=== PATIENT | male | born 2000 ===

== ENCOUNTER 2019-05-12 06:19 | Day surgery (SDC) | payer OTHER ==
[~2019-05-12 06:19] MED LIST: Acetaminophen TAB* 325 MG ONE; Acetaminophen TAB* 325 MG PO ONE; Buffered Lidocaine 1% SYRIN* 1 ML/SYRINGE INTRADERM ONE; Famotidine IV* 10 MG/ML 2 ML (20 mg) IV ONE; Famotidine IV* 10 MG/ML 2 ML (20 mg) ONE; Gabapentin CAP(*) 300 MG PO ONE; Lactated Ringers 1000 ML Bag* 1,000 ML IV SCH
[2019-05-12] MEDS ORDERED: Gabapentin CAP(*) 300 MG ONE (06:24)
[2019-05-12] MEDS ORDERED: Buffered Lidocaine 1% SYRIN* 1 ML/SYRINGE INTRADERM ONE (06:46)
[2019-05-12] MEDS ORDERED: Lidocaine 1% INJ* 10 MG/ML 30 ML SDV ONE (07:10)
[2019-05-12] MEDS ORDERED: Bupivacaine 0.25% SDV* 30 ML ONE (07:10)
[2019-05-12] MEDS ORDERED: Midazolam* 1 MG/ML 2 ML VIAL (2 MG) ONE ×2 (07:31→08:32)
[2019-05-12] MEDS ORDERED: fentaNYL* 50 MCG/ML 2 ML VIAL (100 MCG VIAL) ONE (07:31)
[2019-05-12] MEDS ORDERED: Propofol* 10 MG/ML 20 ML BTL ONE (07:34)
[2019-05-12] MEDS ORDERED: Lidocaine 2% PF * 5 ML VIAL ONE (07:34)
[2019-05-12] MEDS ORDERED: KETAMINE HCL* 50 MG/ML 10 ML VIAL ONE (07:42)
[2019-05-12] MEDS ORDERED: Silver Sulfadiazine 1%* 20 GM ONE (07:47)
[2019-05-12] MEDS ORDERED: Dexamethasone IV* 4 MG/ML 1 ML (4 MG) ONE (07:59)
[2019-05-12] MEDS ORDERED: Ketorolac INJ* 30 MG/ML 1 ML VIAL ONE (07:59)
[2019-05-12] MEDS ORDERED: Naloxone* 0.4 MG/ML 1 ML VIAL IV PRN (08:11)
[2019-05-12] MEDS ORDERED: HYDROcodone/ACETAMIN 5-325 MG* 1 TAB PO PRN (08:11)
[2019-05-12] MEDS ORDERED: Levalbuterol 0.63MG/3ML NEB* UNIT OF USE INH PRN (08:11)
[2019-05-12] MEDS ORDERED: DiMENhydriNATE IV* 50 MG/ML VIAL IV PUSH PRN (08:11)
[2019-05-12] MEDS ORDERED: fentaNYL* 50 MCG/ML 2 ML VIAL (100 MCG VIAL) IV PRN (08:11)
[2019-05-12] MEDS ORDERED: Ondansetron INJ* 2 MG/ML VIAL IV PRN (08:11)
[2019-05-12] MEDS ORDERED: diPHENhydraMINE IV* 50 MG/ML 1 ml VIAL (BENADRYL) IV PRN (08:11)
[2019-05-12] MEDS ORDERED: DiMENhydriNATE IV* 50 MG/ML VIAL ONE (09:33)
[2019-05-12] MEDS ORDERED: Ondansetron INJ* 2 MG/ML VIAL ONE (09:53)
[2019-05-12] MEDS ORDERED: Scopolamine 1.5 mg* PATCH ONE (10:42)
[2019-05-12 11:27] VITALS: BP 132/72
[2019-05-12] MEDS ORDERED: Scopolamine PATCH Remove* 1 NOTE MISC PATCH OFF SCH (12:00)
[2019-05-12] MEDS ORDERED: Scopolamine 1.5 mg* PATCH TRANSDERM SCH (12:00)
--- NOTE | 2019-05-12 23:39 | OP ---
DATE OF OPERATION: 05/12/19 - [facility] DATE OF : 89 SURGEON: Abad Richards DPM GEOGRAPHY FACULTY MEMBER: ANESTHESIOLOGIST: ANESTHESIA: MAC local. PRE-OP DIAGNOSIS: Right and left foot plantar warts. POST-OP DIAGNOSIS: Right and left foot plantar warts. OPERATIVE PROCEDURE: CO2 laser ablation of the right and left foot plantar warts. ESTIMATED BLOOD LOSS: 20 cc. IV FLUIDS: LR 1000 cc. DRAINS: None. SPECIMENS: Plantar wart from the right foot. DESCRIPTION OF PROCEDURE: The patient was taken to the operating room, was placed in a supine position. A time-out was called and OR team agreed. The right and left foot was then blocked with 20 cc of 1% lidocaine plain intralesionally. The foot was then prepped and draped in a sterile manner. The right foot was exsanguinated with an Esmarch bandage and the cuff was then inflated to 250 mmHg. Attention was then paid to the right foot where there were multiple verruciform lesions, two on the right hallux, one on the 5th toe, there is 1 dorsally in the same foot, there are 2 on the lateral heel, and there are 2 on the plantar heel. I went ahead and ablated lesions with a CO2 laser at 3 mcmahon of power in a continuous fashion. Once it was ablated, I went ahead and removed the lesion with a Becky dermal curette. I proceeded to remove it down to the papillary layer of the skin. Once I was able to view the skin line, the procedure was then deemed completed. I took a few specimens from the right hallux, passed it over to nurse for tissue microscopy. The cup was then deflated, the foot was then placed in a dry sterile dressing. I went ahead and inflated the left foot where there is 1 lesion to the medial heel. I went ahead and used the same CO2 laser, ablated under 3 mcmahon of power in a continuous fashion. I went ahead and curetted the ablated tissue down to the skin lines. Once I was able to view the skin lines in its entirety, the procedure was then deemed completed. The cuff was then deflated, the foot was placed in a dry sterile dressing. The patient was taken to Recovery in stable condition. [id number]/[facility] #: [id number] [facility]PITALYoselin
== END 2019-05-12 11:50 | disposition home or self-care (01) ==
LOC: OREAST 06:19
PROVIDERS: ATTEND Podiatrist
DX: B07.0 Plantar wart (principal); M79.671 Pain in right foot; M79.672 Pain in left foot; F41.8 Other specified anxiety disorders; J45.909 Unspecified asthma, uncomplicated; Z87.891 Personal history of nicotine dependence
CPT/HCPCS: 88305; A9270-GY; J1100; J1240; J1885; J2250; J2405; J2704; J3010; J3490